=== PATIENT | female | born 2000 | race Two or more races ===

== ENCOUNTER 2021-03-27 19:23 | Emergency (ER) | payer OTHER ==
[~2021-03-27] VITALS: Ht 152.4 cm; Wt 53.5 kg
[2021-03-27] MEDS ORDERED: EXCEDRIN MIGRA1 EAC1 (19:33)
[2021-03-27] MEDS ORDERED: CIPRO500 MG PO (23:12)
[2021-03-27] MEDS ORDERED: BUTALB-ACETAMI1 EACH PO (23:49)
== END 2021-03-28 01:46 | disposition home or self-care (01) ==
LOC: ER 19:23
DX: G43.909 Migraine, unspecified, not intractable, without status migrainosus (principal); N39.0 Urinary tract infection, site not specified

== ENCOUNTER 2021-07-28 00:30 | Emergency (ER) | payer OTHER ==
[~2021-07-28] VITALS: Ht 165.1 cm; Wt 63.5 kg
[~2021-07-28 00:30] MED LIST: BUTALB-ACETAMI1 EACH PO; CIPRO500 MG PO; EXCEDRIN MIGRA1 EAC1
[2021-07-28] MEDS ORDERED: CIPRO500 MG PO (06:02)
[2021-07-28] MEDS ORDERED: KETO10TA2 PO (06:03)
== END 2021-07-28 06:18 ==
LOC: ER 00:30
DX: N39.0 Urinary tract infection, site not specified (principal); R10.9 Unspecified abdominal pain; N23 Unspecified renal colic; Z91.040 Latex allergy status

== ENCOUNTER 2022-07-23 22:04 | Emergency (ER) | payer OTHER ==
[~2022-07-23] VITALS: Ht 144.8 cm; Wt 51.7 kg
[~2022-07-23 22:04] MED LIST changes: +KETO10TA2 PO
== END 2022-07-24 01:26 | disposition home or self-care (01) ==
LOC: ER 22:04
DX: M62.830 Muscle spasm of back (principal); Z91.040 Latex allergy status

== ENCOUNTER 2023-11-04 20:50 | Emergency (ER) | payer OTHER ==
[~2023-11-04] VITALS: Ht 152.4 cm; Wt 61.2 kg
[2023-11-04] MEDS ORDERED: hydrOXYzine PAMOATE 50 MG CAPSULE PO ONE (21:15)
[2023-11-04] MEDS ORDERED: KETOROLAC TROMETHAMINE 60 MG VIAL IM ONE (22:30)
[2023-11-04 23:07] LABS: HEMATOCRIT 35.1 % (36.0-45.00); HEMOGLOBIN 12.1 g/dL (12.0-15.00); MEAN CELL VOLUME 90.7 fL (80.00-100.00); MEAN CORPUSCULAR HEMOGLOBIN 31.4 pg (27.00-32.0); MEAN CORPUSCULAR HGB CONC 34.6 g/dl (32.0-36.0); PLATELET COUNT 252 K/uL (150-450); RED BLOOD COUNT 3.87 M/uL (4.00-6.00); RED CELL DISTRIBUTION WIDTH 12.7 % (11.5-14.5)
[2023-11-04 23:41] LABS: ALBUMIN 3.8 gm/dL (3.4-5.0); BILIRUBIN TOTAL 1.01 mg/dL (0.3-1.2); CALCIUM 8.7 mg/dL (8.5-10.1); CREATININE SERUM 0.72 mg/dL (0.55-1.02); GFR 97.91; GLOBULINA 3.9 G/DL (2.4-3.5); POTASSIUM 3.22 mEq/L (3.5-5.1); TOTAL PROTEIN 7.7 gm/dL (6.4-8.2)
[2023-11-05 00:46] LABS: PH,URINE 6.5 (5.0-8.0); URINE APPEARANCE Clear; URINE BILIRRUBIN Negative (NEGATIVE); URINE BLOOD Negative; URINE COLOR Yellow; URINE GLUCOSE Negative (NEGATIVE); URINE LEUKOCYTE Moderate; URINE NITRATE Negative; URINE PROTEIN Trace (NEGATIVE); URINE UROBILINOGEN 0.2 E.U./dl
[2023-11-05 00:49] LABS: URINE EPITHELIAL CELLS 13.9 uL (0.0-38.8); URINE WBC 231.9 uL (0.0-23.2)
[2023-11-05 00:57] LABS: URINE RBC 1.9 uL (0.0-20.8)
== END 2023-11-05 04:10 | disposition home or self-care (01) ==
LOC: ER 20:50
PROVIDERS: General Practice
DX: N20.0 Calculus of kidney (principal); R53.81 Other malaise; R06.02 Shortness of breath; Z91.040 Latex allergy status